=== PATIENT | male | born 1975 | race Caucasian/White ===

== ENCOUNTER → 2017-01-30 | Outpatient (CLI) | payer OTHER ==
--- NOTE | 2017-01-30 14:08 | RAD ---
Left knee, 3 views, 01/30/2017: History: Knee pain, injury No fracture or dislocation is identified. No significant arthritic changes are seen. There is a suggestion of a small joint effusion. IMPRESSION: No acute bony abnormality is detected.
== END | disposition home or self-care (01) ==
LOC: DXRADRC 13:54
PROVIDERS: ATTEND Nurse Practitioner Family
DX: M25.562 Pain in left knee (principal)
CPT/HCPCS: 73562

== ENCOUNTER → 2019-03-11 | Outpatient (CLI) | payer OTHER ==
--- NOTE | 2019-03-11 16:14 | RAD ---
CHEST PA LATERAL History: Shortness of breath. Comparison: None. Findings: No consolidation or pleural effusion. Normal heart size. Impression: 1. No acute cardiopulmonary process. Electronically signed by: Mark Miller DO (03/11/2019 4:11 PM) [facility]
== END | disposition home or self-care (01) ==
LOC: PMG 08:38
PROVIDERS: ATTEND Physician Assistant Medical
DX: R06.02 Shortness of breath (principal)
CPT/HCPCS: 71046

== ENCOUNTER → 2020-01-04 | Outpatient (CLI) | payer OTHER ==
--- NOTE | 2020-01-04 12:33 | RAD ---
PROCEDURE: CERVICAL SPINE 5V CLINICAL INDICATION / HISTORY: Reason: NECK PAIN / Spl. Instructions: / History: . TECHNIQUE: 5 views, AP, lateral, bilateral oblique and odontoid views COMPARISON: None FINDINGS: Alignment shows minimal reversal of normal cervical lordosis, apex at C3-C4. No listhesis. Vertebral body heights and disc spaces are well maintained. The atlantoaxial joint is well maintained. No fracture or subluxation is identified. Prevertebral and paraspinous soft tissues are unremarkable. IMPRESSION: Mild reversal normal cervical lordosis could be positional. Otherwise no evidence of fracture or subluxation in the cervical spine. Electronically signed by: Tariq Henry MD (01/04/2020 12:30 PM) [id number]
== END | disposition home or self-care (01) ==
LOC: PMG 11:18
DX: M40.292 Other kyphosis, cervical region (principal)
CPT/HCPCS: 72050